=== PATIENT | female | born 2000 | race Hispanic/Latino ===

== ENCOUNTER 2024-06-26 22:40 | Emergency (ER) | payer OTHER ==
[2024-06-26] MEDS ORDERED: diphenhydrAMINE 25 MG CAP ONE (23:19)
[2024-06-26] MEDS ORDERED: Ondansetron ODT 4 MG TAB ONE (23:19)
[2024-06-26] MEDS ORDERED: Acetaminophen 325 MG TAB ONE (23:19)
== END 2024-06-27 00:45 | disposition home or self-care (01) ==
LOC: ERS 22:40
DX: O21.0 Mild hyperemesis gravidarum (principal); Z3A.10 10 weeks gestation of pregnancy
CPT/HCPCS: 99283; Q0162